=== PATIENT | female | born 1970 | race Caucasian/White ===

== ENCOUNTER → 2020-06-24 | Outpatient (CLI) | payer BC, SELFPAY | END | disposition home or self-care (01) | LOC: SLB 13:00 → EDSTATUS 07-01 10:10 | PROVIDERS: ATTEND Colon & Rectal Surgery | DX: Z01.818 Encounter for other preprocedural examination (principal); Z11.59 Encounter for screening for other viral diseases; C50.919 Malignant neoplasm of unspecified site of unspecified female breast | CPT/HCPCS: U0003-CS ==